=== PATIENT | male | born 1970 ===

== ENCOUNTER 2020-09-12 16:35 | Emergency (ER) | payer BC ==
--- NOTE | 2020-09-12 16:44 | ERPHSYRPT ---
- History of Present Illness Time Seen by Provider: 09/12/20 16:43 Historian: patient Patient Subjective Stated Complaint: CP onset this afternoon Triage Nursing Assessment: pt to ED c/o CP that started while mowing yard today. pt became light headed and came inside to rest, when feeling better went back out to mow. started feeling CP and lightheadedness again and decided to ocme to ED. denies cardiac hx. denies pain at this time but states it was substernal and radiated through to back. Physician History: This is a 50-year-old white male with no prior cardiac history presents with substernal chest pain which radiated into his back. The pain was sharp. This occurred while he was mowing his yard. He also became lightheaded. He stopped mowing, went inside and rested for a bit. The symptoms subsided. He then went out to mow again and he felt similar symptoms therefore he stopped mowing and felt he needed to come in to be evaluated. He arrives to the emergency department in no pain whatsoever. He is not short of breath he has had no fevers chills or cough. He occasionally has had intermittent fluttering of the chest but this did not seem to bother him. He felt it was important to mention. Patient has a true allergy to aspirin. Timing/Duration: today Activities at Onset: activity (In his yard) Quality: sharpness, stabbing Location: substernal Chest Pain Radiation: back Severity of Pain-Max: mild Severity of Pain-Current: none Modifying Factors: Improves With: rest Associated Symptoms: denies symptoms Prior Chest Pain/Cardiac Workup: no prior chest pain Nitro Today/Relief: no nitro taken today Aspirin Treatment Today: no aspirin today Allergies/Adverse Reactions: aspirin Allergy (Verified 09/12/20 16:43) Hives Penicillins Allergy (Verified 09/12/20 16:43) Home Medications: No Reportable Medications [No Reported Medications] 09/12/20 [History] Hx Tetanus, Diphtheria Vaccination/Date Given: No Hx Influenza Vaccination/Date Given: No Hx Pneumococcal Vaccination/Date Given: No Immunizations Up to Date: No Travel Risk - International Travel Have you traveled outside of the country in past 3 weeks: No - Coronavirus Screening Are you exhibiting any of the following symptoms?: No Close contact with a COVID-19 positive Pt in past 14-21 Days: Yes - Vaccine Status Have you recieved a Covid-19 vaccination: No - Review of Systems Constitutional: No Symptoms Eyes: No Symptoms Ears, Nose, & Throat: No Symptoms Respiratory: No Symptoms Cardiac: Chest Pain Abdominal/Gastrointestinal: No Symptoms Genitourinary Symptoms: No Symptoms Musculoskeletal: No Symptoms Skin: No Symptoms Neurological: Other (Mild lightheadedness) Psychological: No Symptoms Endocrine: No Symptoms Hematologic/Lymphatic: No Symptoms Immunological/Allergic: No Symptoms All Other Systems: Reviewed and Negative - Past Medical History Pertinent Past Medical History: No - Past Surgical History Past Surgical History: Yes Musculoskeletal: Orthopedic Surgery Other Surgical History: lower back -1996 - Social History Smoking Status: Never smoker Exposure to second hand smoke: No Drug Use: none Patient Lives Alone: No - Nursing Vital Signs Nursing Vital Signs: Initial Vital Signs Temperature 98.1 F 09/12/20 16:36 Pulse Rate 80 09/12/20 16:36 Respiratory Rate 20 09/12/20 16:36 Blood Pressure 158/93 09/12/20 16:36 O2 Sat by Pulse Oximetry 100 09/12/20 16:36 Pain Scale Pain Intensity 0 - Physical Exam General Appearance: no apparent distress, alert, anxiety Eye Exam: PERRL/EOMI, eyes nml inspection Ears, Nose, Throat Exam: normal ENT inspection, moist mucous membranes Neck Exam: normal inspection, non-tender, supple, full range of motion Respiratory Exam: normal breath sounds, chest tenderness, lungs clear, airway intact, No respiratory distress Cardiovascular Exam: regular rate/rhythm, normal heart sounds, normal peripheral pulses Gastrointestinal/Abdomen Exam: soft, normal bowel sounds, No tenderness Rectal Exam: not done Back Exam: normal inspection, normal range of motion, No CVA tenderness, No vertebral tenderness Extremity Exam: normal inspection, normal range of motion, No pelvis stable Neurologic Exam: alert, oriented x 3, cooperative, outsole tacker II-XII nml as tested, normal mood/affect, nml cerebellar function, nml station & gait, sensation nml Skin Exam: normal color, warm, dry Lymphatic Exam: No adenopathy SpO2 Interpretation: normal SpO2: 100 O2 Delivery: Room Air - Course Nursing assessment & vital signs reviewed: Yes EKG Interpreted by Me: RATE (70), Sinus Rhythm, NORMAL AXIS, NORMAL INTERVALS, NORMAL QRS, NORMAL ST-T, Other (No comparison EKG available. There is no acute ischemic changes on today's EKG.) Ordered Tests: Active Orders 24 hr Category Date Time Status Date Puller STAT Care 09/12/20 16:54 Active EKG-ER Only STAT Care 09/12/20 16:54 Active IV Insertion STAT Care 09/12/20 16:54 Active Pulse Oximetry (ED) STAT Care 09/12/20 16:54 Active CHEST 1 VIEW (PORTABLE) Stat Exams 09/12/20 16:54 Taken CBC W DIFF Stat Lab 09/12/20 17:07 Completed CMP Stat Lab 09/12/20 17:07 Completed D-DIMER QUANTITATIVE Stat Lab 09/12/20 17:07 Completed NT PRO BNP Stat Lab 09/12/20 17:07 Completed PROTIME WITH INR Stat Lab 09/12/20 17:07 Completed TROPONIN Q3H Lab 09/12/20 17:07 Completed TROPONIN Q3H Lab 09/12/20 20:00 Ordered TROPONIN Q3H Lab 09/12/20 23:00 Ordered TROPONIN Q3H Lab 09/13/20 02:00 Ordered TROPONIN Q3H Lab 09/13/20 05:00 Ordered Lab/Rad Data: Laboratory Result Diagrams 09/12/20 17:07 09/12/20 17:07 Laboratory Results 09/12/20 09/12/20 09/12/20 Range/Units 17:07 17:07 17:07 WBC (4.0-10.5) K/mm3 RBC (4.1-5.6) M/mm3 Hgb (12.5-18.0) gm/dl Hct (42-50) % MCV (78-100) fl MCH (26-32) pg MCHC (32-36) g/dl RDW (11.5-14.0) % Plt Count (150-450) K/mm3 MPV (7.5-11.0) fl Gran % (36.0-66.0) % Eos # (Auto) (0-0.5) Absolute Lymphs (auto) (1.0-4.6) Absolute Monos (auto) (0.0-1.3) Lymphocytes % (24.0-44.0) % Monocytes % (0.0-12.0) % Eosinophils % (0.00-5.0) % Basophils % (0.0-0.4) % Absolute Granulocytes (1.4-6.9) Basophils # (0-0.4) PT 11.3 (8.83-12.87) SECONDS INR 1.00 (0.8-3.0) D-Dimer < 215 L (215-500) ng/mL Sodium 139 (137-145) mmol/L Potassium 3.8 (3.5-5.1) mmol/L Chloride 106 (98-107) mmol/L Carbon Dioxide 24 (22-30) mmol/L Anion Gap 12.8 (5-15) MEQ/L BUN 17 (9-20) mg/dL Creatinine 0.89 (0.66-1.25) mg/dL Estimated GFR > 60.0 ML/MIN Glucose 116 H (74-106) mg/dL Calcium 9.6 (8.4-10.2) mg/dL Total Bilirubin 0.50 (0.2-1.3) mg/dL AST 34 (17-59) U/L ALT 17 (0-50) U/L Alkaline Phosphatase 62 (38-126) U/L Troponin I < 0.012 (0.000-0.034) ng/mL NT-Pro-B Natriuret Pep 41.8 (0-450) pg/mL Serum Total Protein 7.4 (6.3-8.2) g/dL Albumin 4.5 (3.5-5.0) g/dL 09/12/20 Range/Units 17:07 WBC 7.3 (4.0-10.5) K/mm3 RBC 4.44 (4.1-5.6) M/mm3 Hgb 13.6 (12.5-18.0) gm/dl Hct 42.7 (42-50) % MCV 96.2 (78-100) fl MCH 30.6 (26-32) pg MCHC 31.9 L (32-36) g/dl RDW 13.0 (11.5-14.0) % Plt Count 312 (150-450) K/mm3 MPV 10.4 (7.5-11.0) fl Gran % 64.2 (36.0-66.0) % Eos # (Auto) 0.04 (0-0.5) Absolute Lymphs (auto) 1.79 (1.0-4.6) Absolute Monos (auto) 0.76 (0.0-1.3) Lymphocytes % 24.6 (24.0-44.0) % Monocytes % 10.5 (0.0-12.0) % Eosinophils % 0.6 (0.00-5.0) % Basophils % 0.1 (0.0-0.4) % Absolute Granulocytes 4.67 (1.4-6.9) Basophils # 0.01 (0-0.4) PT (8.83-12.87) SECONDS INR (0.8-3.0) D-Dimer (215-500) ng/mL Sodium (137-145) mmol/L Potassium (3.5-5.1) mmol/L Chloride (98-107) mmol/L Carbon Dioxide (22-30) mmol/L Anion Gap (5-15) MEQ/L BUN (9-20) mg/dL Creatinine (0.66-1.25) mg/dL Estimated GFR ML/MIN Glucose (74-106) mg/dL Calcium (8.4-10.2) mg/dL Total Bilirubin (0.2-1.3) mg/dL AST (17-59) U/L ALT (0-50) U/L Alkaline Phosphatase (38-126) U/L Troponin I (0.000-0.034) ng/mL NT-Pro-B Natriuret Pep (0-450) pg/mL Serum Total Protein (6.3-8.2) g/dL Albumin (3.5-5.0) g/dL - Progress Progress: improved, re-examined Air Movement: good Progress Note: 09/12/20 18:01 Chest x-ray shows no acute cardiopulmonary process. 09/12/20 18:35 Patient has no chest pain. He is ready for discharge to home. Blood Culture(s) Obtained: No Antibiotics given: No Counseled pt/family regarding: lab results, diagnosis, need for follow-up, rad results - Departure Departure Disposition: Home Clinical Impression: Chest pain, non-cardiac Condition: Stable Critical Care Time: No Referrals: DOCTOR,NO FAMILY [Primary Care Provider] - Additional Instructions: Take medication as prescribed. Follow-up with your primary care physician tomorrow to make arrangements for further management of your intermittent symptoms. This would include referral to personal counselor if indicated.
[2020-09-12 17:09] LABS: Absolute Neutrophil Ct (ANC) 4.67 (1.4-6.9); BASOPHIL % 0.1 % (0.0-0.4); Basophil (Absolute #) 0.01 (0-0.4); Eosinophil % 0.6 % (0.00-5.0); Eosinophil (Absolute #) 0.04 (0-0.5); Hematocrit 42.7 % (42-50); Hemoglobin 13.6 gm/dl (12.5-18.0); Lymphocyte (Absolute #) 1.79 (1.0-4.6); Lymphocytes % 24.6 % (24.0-44.0); Mean Cell Volume 96.2 fl (78-100); Mean Corpuscular Hemoglobin 30.6 pg (26-32); Mean Corpuscular Hgb Concent. 31.9 g/dl (32-36); Mean Platelet Volume 10.4 fl (7.5-11.0); Monocyte (Absolute #) 0.76 (0.0-1.3); Monocytes % 10.5 % (0.0-12.0); Neutrophil % 64.2 % (36.0-66.0); Platelet Count 312 K/mm3 (150-450); Red Blood Count 4.44 M/mm3 (4.1-5.6); White Blood Count 7.3 K/mm3 (4.0-10.5)
[2020-09-12 18:01] LABS: PROTIME 11.3 SECONDS (8.83-12.87)
[2020-09-12 18:14] LABS: ALBUMIN 4.5 g/dL (3.5-5.0); ALKALINE PHOSPHATASE 62 U/L (38-126); ANION GAP 12.8 MEQ/L (5-15); BLOOD UREA NITROGEN 17 mg/dL (9-20); CHLORIDE 106 mmol/L (98-107); Calcium 9.6 mg/dL (8.4-10.2); Carbon Dioxide 24 mmol/L (22-30); Creatinine 1 0.89 mg/dL (0.66-1.25); EST GLOMERULAR FILTRATION RATE > 60.0 ML/MIN; Glucose 116 mg/dL (74-106); NT PRO BNP 41.8 pg/mL (0-450); Potassium 3.8 mmol/L (3.5-5.1); SGOT/AST 34 U/L (17-59); SGPT/ALT 17 U/L (0-50); SODIUM 139 mmol/L (137-145); Total Protein 7.4 g/dL (6.3-8.2)
[2020-09-12 18:26] LABS: D-DIMER QUANTITATIVE < 215 ng/mL (215-500)
[2020-09-12 18:36] VITALS: BP 132/82; PULSE 65
[2020-09-12 18:37] VITALS: O2SAT 100
--- NOTE | 2020-09-13 08:58 | XRAY ---
Indication: Chest pain. Comparison: May 20, 2007. Portable chest again demonstrates normal heart and lungs. Bony thorax intact again with dextroscoliosis. No new/acute findings.
== END 2020-09-12 19:24 | disposition home or self-care (01) ==
LOC: ED 16:35
DX: R07.89 Other chest pain (principal); R42 Dizziness and giddiness
CPT/HCPCS: 36000; 36415; 71045; 80053; 83880; 84484; 85025; 85379; 85610; 93005; 93041; 94760; 99284

== ENCOUNTER 2023-03-22 06:20 | Day surgery (SDC) | payer BC ==
[2023-03-22] MEDS ORDERED: Lactated Ringers 1,000 ML IV SCH (06:30)
[2023-03-22] MEDS ORDERED: DIPRIVAN 200 MG/20 ML IV ONE (07:50)
[2023-03-22] MEDS ORDERED: Xylocaine-Mpf 2% 5 Ml Vial ONE (07:50)
[2023-03-22] MEDS ORDERED: Versed 2 MG/2 ML Injection ONE (07:54)
[2023-03-22 08:48] VITALS: RESP 18
[2023-03-22 09:06] VITALS: BP 126/71; PULSE 65; TEMP 97.7; O2SAT 99
--- NOTE | 2023-03-22 11:17 | OP ---
SURGERY DATE/TIME: 03/22/2023 0757 PREOPERATIVE DIAGNOSIS: Screening exam. POSTOPERATIVE DIAGNOSIS: Mild colitis and diverticulosis. PROCEDURE: Colonoscopy. SURGEON: Dr. Harvey. ANESTHESIA: Medications given by anesthesia department. HISTORY: The patient is a 52-year-old white male patient presenting now for screening colonoscopy. He was appraised of the risks of the procedure including the risk of perforation, phlebitis, untoward reaction to medication, bleeding and missed lesions. The patient verbalized his understanding and desired to have the procedure performed. DESCRIPTION OF PROCEDURE: The patient was given the medications by the anesthesia department. He had continuous pulse oximetry, ECG monitoring and intermittent blood pressure monitoring during the examination. He was placed in the left lateral decubitus position. A digital rectal examination was performed and revealed mild external hemorrhoids, no masses and a normal anal sphincter tone. The flexible Olympus pediatric colonoscope was used to intubate the rectum. A view of the colon was developed sequentially to the cecum. Upon insertion and withdrawal, including a retroflex view in the rectum was noted diverticulosis and mild sigmoid colitis. No other mucosal lesions being encountered the scope was removed from the patient who tolerated the procedure well and was sent back to OP recovery in good condition. The prep was noted to be fair to good.
== END 2023-03-22 09:08 | disposition home or self-care (01) ==
LOC: SDC 06:20
PROVIDERS: ATTEND Family Medicine
DX: Z12.11 Encounter for screening for malignant neoplasm of colon (principal); K52.9 Noninfective gastroenteritis and colitis, unspecified; K57.90 Diverticulosis of intestine, part unspecified, without perforation or abscess without bleeding; K64.4 Residual hemorrhoidal skin tags
CPT/HCPCS: J2250; J2704